=== PATIENT | male | born 1960 | race Caucasian/White ===

== ENCOUNTER 2023-09-16 11:43 | Inpatient (IN) | payer MEDICARE, MEDICAID ==
[~2023-09-16] VITALS: Ht 175.3 cm; Wt 95.3 kg
[2023-09-16] VITALS (7 sets, daily range): BP systolic 101–126; BP diastolic 65–86; PULSE 88–99; RESP 17–21; TEMP 97.7–99; O2SAT 97–98
[~2023-09-16 11:43] MED LIST: ALL300T PO; ASPI-1265 PO; ATOR40TA71 PO; FURO-150 PO; GEMF600T89 PO; LISI40TA13 PO; LORA1TAB PO; METO50TA16 PO; NORCO10T PO; OMEP-84 PO; POTA8TAB8 PO; SERT-153 PO; TEMA30CA5 PO
[2023-09-16 12:49] LABS: BASOPHILS % (AUTO) 0.8 % (0-1); EOSINOPHILS % (AUTO) 0.5 % (0-6); LYMPHOCYTES # (AUTO) 1.4 X10'3 (1.1-4.8); LYMPHOCYTES % (AUTO) 23.5 % (21-51); MEAN CORPUSCULAR HEMOGLOBIN 23.7 PG (27.0-31.0); MEAN CORPUSCULAR HGB CONC 30.7 g/dL (33.0-36.5); MEAN CORPUSCULAR VOLUME 77.1 FL (78-98); MEAN PLATELET VOLUME 8.9 FL (7.4-10.4); MONOCYTES # (AUTO) 0.7 X10'3 (0-0.9); MONOCYTES % (AUTO) 12.4 % (2-12); NEUTROPHILS # (AUTO) 3.7 X10'3 (1.8-7.7); NEUTROPHILS % (AUTO) 62.8 % (42-75); PLATELET COUNT 175 X10'3 (140-440); RED CELL DISTRIBUTION WIDTH 18.1 % (11.5-14.5); WHITE BLOOD COUNT 5.9 X10'3 (4.5-11.0)
[2023-09-16 12:52] LABS: HEMATOCRIT 20.1 % (42.0-52.0); HEMOGLOBIN 6.2 g/dl (14.0-17.9)
[2023-09-16 13:05] LABS: ALANINE AMINOTRANSFERASE 32 U/L (12-78); ALBUMIN 4.1 G/DL (3.4-5.0); ALBUMIN/GLOBULIN RATIO 1.1 (1.1-1.5); ALKALINE PHOSPHATASE 81 IU/L (46-116); ANION GAP 15 (8-16); ASPARTATE AMINO TRANSFERASE 28 U/L (10-37); BILIRUBIN,TOTAL 0.7 MG/DL (0.1-1.0); BLOOD UREA NITROGEN 19 MG/DL (7-18); BUN/CREATININE RATIO 18.6 (10.0-20.0); CALCIUM 9.2 MG/DL (8.5-10.1); CHLORIDE 104 MMOL/L (99-107); CREATININE 1.02 MG/DL (0.60-1.10); GLUCOSE 124 MG/DL (70-104); SODIUM 142 MMOL/L (135-145); TOTAL CARBON DIOXIDE 23.4 MMOL/L (24-32); TOTAL PROTEIN 7.9 G/DL (6.4-8.2); eCRCL 73 ML/MIN; eGFR 74 ML/MIN
[2023-09-16 15:24] LABS: BILIRUBIN,DIRECT 0.2 MG/DL (0-0.3); ETHANOL < 10 MG/DL (<10)
[2023-09-16 15:39] LABS: MAGNESIUM 1.9 MG/DL (1.5-2.4)
[2023-09-16 15:44] LABS: PROTHROMBIN TIME 10.8 SECONDS (9.0-12.0)
[2023-09-16] MEDS ORDERED: haloperidol 5mg tablet PO PRN (16:15)
[2023-09-16] MEDS ORDERED: magnesium Cl slow-release 64mg tablet PO PRN (16:15)
[2023-09-16] MEDS ORDERED: magnesium 4gm in 100ml NS 100 ML IV PRN (16:15)
[2023-09-16] MEDS ORDERED: potassium Cl 40MEQ/1/2NS 520ml 520 ML IV PRN (16:15)
[2023-09-16] MEDS ORDERED: dextrose 50%-water 50ml dispensing syringe IV PRN ×3 (16:15→21:25)
[2023-09-16] MEDS ORDERED: magnesium hydroxide 30ml (MOM) UD suspension PO PRN (16:15)
[2023-09-16] MEDS ORDERED: LORazepam 2 mg/ml vial IV PRN (16:15)
[2023-09-16] MEDS ORDERED: ondansetron/PF 4mg/2ml inj IV PRN (16:15)
[2023-09-16] MEDS ORDERED: acetaminophen 325mg tablet PO PRN (16:15)
[2023-09-16] MEDS ORDERED: haloperidol lactate 5mg/ml inj IM PRN (16:15)
[2023-09-16] MEDS ORDERED: mag hydrox/Alum hydrox/simeth 30ml oral suspension PO PRN (16:15)
[2023-09-16] MEDS ORDERED: potassium Cl 20 mEq SR tablet PO PRN (16:15)
[2023-09-16] MEDS ORDERED: magnesium 2GM in 50ml NS 50 ML IV PRN (16:15)
[2023-09-16 16:59] LABS: ABSOLUTE RETICS # < 6000 /CUMM (23000-93000); RETICULOCYTE % (AUTO) 3.9 % (0.5-1.5)
[2023-09-16] MEDS: normal saline 1000ml 1,000 ML IV SCH (16:59)
[2023-09-16] MEDS: pantoprazole 40MG/NS 100ML BAG 100 ML IV SCH (17:01)
[2023-09-16 17:59] LABS: % IRON SATURATION 4 % (11-46); IRON 25 UG/DL (53-167); TOTAL IRON BINDING CAPACITY 619 UG/DL (259-388)
[2023-09-16] MEDS: K and/or MAG REPLACEMENT MC SCH (19:59)
[2023-09-16 20:45] LABS: MEAN CORPUSCULAR HEMOGLOBIN 24.8 PG (27.0-31.0); MEAN CORPUSCULAR HGB CONC 31.5 g/dL (33.0-36.5); MEAN CORPUSCULAR VOLUME 78.7 FL (78-98); MEAN PLATELET VOLUME 9.3 FL (7.4-10.4); PLATELET COUNT 156 X10'3 (140-440); RED BLOOD COUNT 2.67 X10'6 (4.70-6.10); RED CELL DISTRIBUTION WIDTH 18.7 % (11.5-14.5); WHITE BLOOD COUNT 7.2 X10'3 (4.5-11.0)
[2023-09-16 20:55] LABS: HEMOGLOBIN 6.6 g/dl (14.0-17.9)
[2023-09-16] MEDS: thiamine 100mg/ml 2ml inj. IV SCH (21:23)
[2023-09-16] MEDS ORDERED: DEXTROSE 15 GM of carb/4 tabs (each vial/BOTTLE has 4 tablets) PO PRN ×2 (21:25)
[2023-09-16] MEDS ORDERED: insulin Lispro (HumaLOG) vial - multi-dose SQ SCH (21:25)
[2023-09-16] MEDS ORDERED: glucagon, human recombinant 1mg kit SUBCUT PRN (21:25)
[2023-09-16 21:46] LABS: HEMOGLOBIN A1C 6.9 % (4.5-6.2)
[2023-09-16] MEDS: MESSAGE TO PHARMACY PO ONE (22:00)
[2023-09-16] MEDS: LORazepam 1 MG tablet PO PRN (22:14)
[2023-09-16] MEDS ORDERED: LORA10TA7 PO (22:43)
[2023-09-16] MEDS ORDERED: SITA50TA PO (22:43)
[2023-09-16] MEDS ORDERED: METF-438 PO (22:44)
[2023-09-16] MEDS ORDERED: VITA-268 PO (22:44)
[2023-09-17] VITALS (15 sets, daily range): BP systolic 102–139; BP diastolic 69–90; PULSE 73–99; RESP 11–22; TEMP 96.9–98.3; O2SAT 95–100
[2023-09-17 01:02] LABS: FERRITIN 13 NG/ML (26-388)
[2023-09-17 07:23] LABS: BASOPHILS % (AUTO) 0.7 % (0-1); EOSINOPHILS % (AUTO) 0.8 % (0-6); HEMATOCRIT 23.6 % (42.0-52.0); HEMOGLOBIN 7.5 g/dl (14.0-17.9); LYMPHOCYTES # (AUTO) 1.3 X10'3 (1.1-4.8); LYMPHOCYTES % (AUTO) 28.4 % (21-51); MEAN CORPUSCULAR HEMOGLOBIN 25.4 PG (27.0-31.0); MEAN CORPUSCULAR VOLUME 79.3 FL (78-98); MEAN PLATELET VOLUME 8.9 FL (7.4-10.4); MONOCYTES # (AUTO) 0.5 X10'3 (0-0.9); MONOCYTES % (AUTO) 11.4 % (2-12); NEUTROPHILS # (AUTO) 2.8 X10'3 (1.8-7.7); NEUTROPHILS % (AUTO) 58.7 % (42-75); PLATELET COUNT 123 X10'3 (140-440); RED BLOOD COUNT 2.98 X10'6 (4.70-6.10); RED CELL DISTRIBUTION WIDTH 18.3 % (11.5-14.5); WHITE BLOOD COUNT 4.7 X10'3 (4.5-11.0)
[2023-09-17 07:44] LABS: ALANINE AMINOTRANSFERASE 31 U/L (12-78); ALBUMIN 3.9 G/DL (3.4-5.0); ALBUMIN/GLOBULIN RATIO 1.3 (1.1-1.5); ALKALINE PHOSPHATASE 76 IU/L (46-116); ANION GAP 10 (8-16); ASPARTATE AMINO TRANSFERASE 34 U/L (10-37); BILIRUBIN,TOTAL 0.7 MG/DL (0.1-1.0); BLOOD UREA NITROGEN 19 MG/DL (7-18); BUN/CREATININE RATIO 19.6 (10.0-20.0); CALCIUM 8.2 MG/DL (8.5-10.1); CHLORIDE 104 MMOL/L (99-107); CREATININE 0.97 MG/DL (0.60-1.10); GLUCOSE 141 MG/DL (70-104); POTASSIUM 3.9 MMOL/L (3.5-5.1); SODIUM 139 MMOL/L (135-145); TOTAL CARBON DIOXIDE 25.2 MMOL/L (24-32); TOTAL PROTEIN 6.9 G/DL (6.4-8.2); eCRCL 77 ML/MIN; eGFR 78 ML/MIN
[2023-09-17 07:51] LABS: OCCULT BLOOD STOOL POSITIVE (Neg)
[2023-09-17] MEDS: folic acid 1mg/0.2ml inj IV SCH (10:03)
[2023-09-17] MEDS ORDERED: fentaNYL/PF 50MCG/1 ML 2ML syringe ONE (14:13)
[2023-09-17] MEDS ORDERED: MIDAZolam 1 MG/ML 5ML VIAL ONE (14:13)
[2023-09-17] MEDS: PEG 3350/Na sulf,bicarb,Cl/KCl oral sol 4 liter bottle PO ONE (16:41)
[2023-09-17] MEDS: CefTRIAXone/D5W-Rocephin 1gm 50 ML IV SCH (20:13)
[2023-09-17] MEDS: insulin glargine (Lantus) pen - multi-dose SQ SCH (20:18)
[2023-09-18] VITALS (23 sets, daily range): BP systolic 94–132; BP diastolic 60–96; PULSE 86–103; RESP 12–24; TEMP 97.3–98.1; O2SAT 91–98
[2023-09-18] MEDS: atorvastatin 20mg tablet PO SCH (07:16)
[2023-09-18] MEDS: gemfibrozil 600mg tablet PO SCH (07:16)
[2023-09-18] MEDS: allopurinol 300 MG tablet PO SCH (07:16)
[2023-09-18 07:20] LABS: BASOPHILS % (AUTO) 0.4 % (0-1); EOSINOPHILS # (AUTO) 0.1 X10'3 (0-0.9); EOSINOPHILS % (AUTO) 1.2 % (0-6); LYMPHOCYTES # (AUTO) 0.9 X10'3 (1.1-4.8); LYMPHOCYTES % (AUTO) 19.4 % (21-51); MEAN CORPUSCULAR HGB CONC 31.6 g/dL (33.0-36.5); MEAN PLATELET VOLUME 9.1 FL (7.4-10.4); MONOCYTES # (AUTO) 0.5 X10'3 (0-0.9); MONOCYTES % (AUTO) 10.5 % (2-12); NEUTROPHILS # (AUTO) 3.2 X10'3 (1.8-7.7); NEUTROPHILS % (AUTO) 68.5 % (42-75); PLATELET COUNT 117 X10'3 (140-440); RED BLOOD COUNT 2.66 X10'6 (4.70-6.10); RED CELL DISTRIBUTION WIDTH 18.6 % (11.5-14.5); WHITE BLOOD COUNT 4.7 X10'3 (4.5-11.0)
[2023-09-18 07:27] LABS: HEMOGLOBIN 6.7 g/dl (14.0-17.9)
[2023-09-18 07:36] LABS: ALANINE AMINOTRANSFERASE 33 U/L (12-78); ALBUMIN 3.2 G/DL (3.4-5.0); ALBUMIN/GLOBULIN RATIO 1.1 (1.1-1.5); ALKALINE PHOSPHATASE 71 IU/L (46-116); ANION GAP 11 (8-16); ASPARTATE AMINO TRANSFERASE 37 U/L (10-37); BILIRUBIN,TOTAL 0.6 MG/DL (0.1-1.0); BLOOD UREA NITROGEN 11 MG/DL (7-18); BUN/CREATININE RATIO 12.8 (10.0-20.0); CALCIUM 7.8 MG/DL (8.5-10.1); CHLORIDE 106 MMOL/L (99-107); CREATININE 0.86 MG/DL (0.60-1.10); GLUCOSE 121 MG/DL (70-104); POTASSIUM 3.3 MMOL/L (3.5-5.1); SODIUM 141 MMOL/L (135-145); TOTAL CARBON DIOXIDE 24.3 MMOL/L (24-32); TOTAL PROTEIN 6.1 G/DL (6.4-8.2); eCRCL 87 ML/MIN; eGFR 90 ML/MIN
[2023-09-18 08:23] LABS: PLATELET ESTIMATE DECREASED
[2023-09-18 08:24] LABS: ANISOCYTOSIS 2+; ELLIPTOCYTES FEW; HYPOCHROMASIA 1+; MICROCYTOSIS 1+; POLYCHROMASIA 1+; TEAR DROP CELLS FEW
[2023-09-18] MEDS: potassium Cl 20 mEq SR tablet PO PRN (09:46)
[2023-09-18 13:05] LABS: HEMATOCRIT 24.7 % (42.0-52.0); HEMOGLOBIN 7.9 g/dl (14.0-17.9); MEAN CORPUSCULAR HEMOGLOBIN 26.2 PG (27.0-31.0); MEAN CORPUSCULAR HGB CONC 32.1 g/dL (33.0-36.5); MEAN CORPUSCULAR VOLUME 81.8 FL (78-98); MEAN PLATELET VOLUME 8.9 FL (7.4-10.4); PLATELET COUNT 119 X10'3 (140-440); RED BLOOD COUNT 3.02 X10'6 (4.70-6.10); RED CELL DISTRIBUTION WIDTH 20.4 % (11.5-14.5); WHITE BLOOD COUNT 5.3 X10'3 (4.5-11.0)
[2023-09-18] MEDS ORDERED: fentaNYL/PF 50MCG/1 ML 2ML syringe ONE (14:09)
[2023-09-18] MEDS ORDERED: epiNEPHrine 0.1mg/ml 10ml syringe ONE (14:09)
[2023-09-18] MEDS ORDERED: MIDAZolam 1 MG/ML 5ML VIAL ONE (14:09)
[2023-09-18] MEDS: pantoprazole 40mg Tablet.DR PO SCH (19:59)
[2023-09-19 02:00] VITALS: BP 99/66; PULSE 69; RESP 19; TEMP 97.4; O2SAT 96
[2023-09-19 06:00] VITALS: BP 119/89; PULSE 85; RESP 18; TEMP 97.3; O2SAT 94
[2023-09-19 06:25] LABS: BASOPHILS % (AUTO) 0.8 % (0-1); EOSINOPHILS # (AUTO) 0.1 X10'3 (0-0.9); EOSINOPHILS % (AUTO) 1.8 % (0-6); HEMATOCRIT 26.7 % (42.0-52.0); HEMOGLOBIN 8.4 g/dl (14.0-17.9); LYMPHOCYTES # (AUTO) 1.3 X10'3 (1.1-4.8); LYMPHOCYTES % (AUTO) 22.1 % (21-51); MEAN CORPUSCULAR HGB CONC 31.6 g/dL (33.0-36.5); MEAN CORPUSCULAR VOLUME 82.2 FL (78-98); MEAN PLATELET VOLUME 9.3 FL (7.4-10.4); MONOCYTES # (AUTO) 0.6 X10'3 (0-0.9); MONOCYTES % (AUTO) 10.2 % (2-12); NEUTROPHILS # (AUTO) 3.7 X10'3 (1.8-7.7); NEUTROPHILS % (AUTO) 65.1 % (42-75); PLATELET COUNT 119 X10'3 (140-440); RED BLOOD COUNT 3.25 X10'6 (4.70-6.10); RED CELL DISTRIBUTION WIDTH 20.8 % (11.5-14.5); WHITE BLOOD COUNT 5.8 X10'3 (4.5-11.0)
[2023-09-19 06:42] LABS: ALANINE AMINOTRANSFERASE 41 U/L (12-78); ALBUMIN 3.3 G/DL (3.4-5.0); ALKALINE PHOSPHATASE 77 IU/L (46-116); ANION GAP 10 (8-16); ASPARTATE AMINO TRANSFERASE 41 U/L (10-37); BILIRUBIN,TOTAL 0.5 MG/DL (0.1-1.0); BLOOD UREA NITROGEN 13 MG/DL (7-18); BUN/CREATININE RATIO 14.4 (10.0-20.0); CALCIUM 8.2 MG/DL (8.5-10.1); CHLORIDE 107 MMOL/L (99-107); GLUCOSE 127 MG/DL (70-104); SODIUM 142 MMOL/L (135-145); TOTAL PROTEIN 6.5 G/DL (6.4-8.2); eCRCL 83 ML/MIN; eGFR 85 ML/MIN
[2023-09-19 07:18] LABS: ANISOCYTOSIS 3+; MICROCYTOSIS 1+; PLATELET ESTIMATE DECREASED; TEAR DROP CELLS FEW
[2023-09-19 07:19] LABS: POIKILOCYTOSIS FEW
[2023-09-19 08:00] VITALS: RESP 16; O2SAT 95
[2023-09-19 11:00] VITALS: BP 119/84; PULSE 76; RESP 16; TEMP 98.1; O2SAT 95
[2023-09-19] MEDS ORDERED: FERR324T4 PO (11:34)
[2023-09-19] MEDS ORDERED: FOLI0.4T6 PO (11:34)
[2023-09-20] MEDS ORDERED: thiamine 100mg tablet PO SCH (08:00)
[2023-09-21] MEDS ORDERED: folic acid 1mg tablet PO SCH (08:00)
== END 2023-09-19 12:31 | disposition home or self-care (01) | DRG 378 ==
LOC: ER 11:44 → ED HOLD 16:16 → PCU 3S 21:45
PROVIDERS: ADMIT Family Medicine; ATTEND Family Medicine
PROC: 30233N1 Transfusion of Nonautologous Red Blood Cells into Peripheral Vein, Percutaneous Approach (ICD-10-PCS; principal; 2023-09-16)
PROC: 0DB48ZX Excision of Esophagogastric Junction, Via Natural or Artificial Opening Endoscopic, Diagnostic (ICD-10-PCS; 2023-09-17)
PROC: 0DB78ZX Excision of Stomach, Pylorus, Via Natural or Artificial Opening Endoscopic, Diagnostic (ICD-10-PCS; 2023-09-17)
PROC: 0DBP8ZZ Excision of Rectum, Via Natural or Artificial Opening Endoscopic (ICD-10-PCS; 2023-09-18)
DX: K92.2 Gastrointestinal hemorrhage, unspecified (principal); I50.30 Unspecified diastolic (congestive) heart failure; K62.1 Rectal polyp; M10.9 Gout, unspecified; K21.00 Gastro-esophageal reflux disease with esophagitis, without bleeding; F17.210 Nicotine dependence, cigarettes, uncomplicated; E11.9 Type 2 diabetes mellitus without complications; I25.10 Atherosclerotic heart disease of native coronary artery without angina pectoris; I11.0 Hypertensive heart disease with heart failure; K44.9 Diaphragmatic hernia without obstruction or gangrene; D50.9 Iron deficiency anemia, unspecified; I25.2 Old myocardial infarction; Z95.1 Presence of aortocoronary bypass graft; Z90.49 Acquired absence of other specified parts of digestive tract; Z95.0 Presence of cardiac pacemaker; Z79.82 Long term (current) use of aspirin; Z79.899 Other long term (current) drug therapy; Z95.2 Presence of prosthetic heart valve
CPT/HCPCS: 36415; 36430; 43239; 45385; 80053; 80320; 82248; 82272; 82728; 82948; 83036; 83540; 83550; 83735; 85008; 85025; 85027; 85045; 85610; 86885; 86900; 86901; 86920; 87081; 88305; 93306; 99152; 99153; 99285; A4620; C1889; C9113; G0378; J0171; J0696; J1815; J2250; J3010; J3411; J3490; J7030; J7040; J7050; P9016

== ENCOUNTER 2024-01-19 10:14 | Day surgery (SDC) | payer MEDICARE, MEDICAID ==
[2024-01-15 12:22] LABS: BASOPHILS # (AUTO) 0.1 X10'3 (0-0.2); BASOPHILS % (AUTO) 0.8 % (0-1); EOSINOPHILS % (AUTO) 0.3 % (0-6); HEMATOCRIT 23.9 % (42.0-52.0); LYMPHOCYTES # (AUTO) 1.1 X10'3 (1.1-4.8); LYMPHOCYTES % (AUTO) 15.3 % (21-51); MEAN CORPUSCULAR HEMOGLOBIN 21.1 PG (27.0-31.0); MEAN CORPUSCULAR HGB CONC 29.5 g/dL (33.0-36.5); MEAN CORPUSCULAR VOLUME 71.5 FL (78-98); MEAN PLATELET VOLUME 9.1 FL (7.4-10.4); MONOCYTES # (AUTO) 0.9 X10'3 (0-0.9); MONOCYTES % (AUTO) 11.9 % (2-12); NEUTROPHILS # (AUTO) 5.2 X10'3 (1.8-7.7); NEUTROPHILS % (AUTO) 71.7 % (42-75); PLATELET COUNT 173 X10'3 (140-440); RED BLOOD COUNT 3.34 X10'6 (4.70-6.10); RED CELL DISTRIBUTION WIDTH 19.5 % (11.5-14.5); WHITE BLOOD COUNT 7.2 X10'3 (4.5-11.0)
[2024-01-15 12:33] LABS: APTT 26 SECONDS (22-32); INR 1.2 INR; PROTHROMBIN TIME 12.7 SECONDS (9.0-12.0)
[2024-01-15 12:34] LABS: ALBUMIN 3.6 G/DL (3.4-5.0); ANION GAP 10 (8-16); BLOOD UREA NITROGEN 20 MG/DL (7-18); BUN/CREATININE RATIO 17.5 (10.0-20.0); CALCIUM 8.8 MG/DL (8.5-10.1); CHLORIDE 101 MMOL/L (99-107); CHOL/HDL RATIO 3.2 (0.00-4.99); CHOLESTEROL 71 MG/DL (0-200); CREATININE 1.14 MG/DL (0.60-1.10); GLUCOSE 138 MG/DL (70-104); HDL CHOLESTEROL 22 MG/DL (35-60); LDL CHOLESTEROL 41 MG/DL (50-100); POTASSIUM 3.3 MMOL/L (3.5-5.1); SODIUM 135 MMOL/L (135-145); TOTAL CARBON DIOXIDE 23.9 MMOL/L (24-32); TRIGLYCERIDES 72 MG/DL (20-135); eGFR 64 ML/MIN
[2024-01-15 13:30] LABS: ANISOCYTOSIS 2+; MICROCYTOSIS 1+; PLATELET ESTIMATE NORMAL; TARGET CELLS FEW
[2024-01-15 13:31] LABS: ELLIPTOCYTES 1+; HYPOCHROMASIA 1+; STOMATOCYTES 1+; TEAR DROP CELLS FEW
[~2024-01-19] VITALS: Ht 177.8 cm; Wt 109.8 kg
[2024-01-19] VITALS (9 sets, daily range): BP systolic 79–121; BP diastolic 54–79; PULSE 74–95; RESP 16–18; TEMP 98.2; O2SAT 95–98
[~2024-01-19 10:14] MED LIST changes: +ATOR10TA87 PO; -ATOR40TA71 PO; -LISI40TA13 PO; +LORA10TA7 PO; -LORA1TAB PO; +LOSA-416 PO; +METF-438 PO; +METO-395 PO; -METO50TA16 PO; -NORCO10T PO; -OMEP-84 PO; +PANT-47 PO; -SERT-153 PO; +SITA50TA PO; -TEMA30CA5 PO
[2024-01-19 10:51] LABS: BASOPHILS # (AUTO) 0.1 X10'3 (0-0.2); EOSINOPHILS % (AUTO) 0.6 % (0-6); HEMATOCRIT 25.2 % (42.0-52.0); HEMOGLOBIN 7.5 g/dl (14.0-17.9); LYMPHOCYTES # (AUTO) 1.4 X10'3 (1.1-4.8); LYMPHOCYTES % (AUTO) 16.6 % (21-51); MEAN CORPUSCULAR HEMOGLOBIN 20.9 PG (27.0-31.0); MEAN CORPUSCULAR HGB CONC 29.6 g/dL (33.0-36.5); MEAN CORPUSCULAR VOLUME 70.4 FL (78-98); MEAN PLATELET VOLUME 9.3 FL (7.4-10.4); MONOCYTES # (AUTO) 1.1 X10'3 (0-0.9); MONOCYTES % (AUTO) 12.8 % (2-12); NEUTROPHILS # (AUTO) 5.8 X10'3 (1.8-7.7); PLATELET COUNT 205 X10'3 (140-440); RED BLOOD COUNT 3.59 X10'6 (4.70-6.10); RED CELL DISTRIBUTION WIDTH 19.2 % (11.5-14.5); WHITE BLOOD COUNT 8.4 X10'3 (4.5-11.0)
[2024-01-19] MEDS ORDERED: PANT40TA54 PO (10:51)
[2024-01-19] MEDS ORDERED: PYRI25TA3 PO (10:51)
[2024-01-19] MEDS ORDERED: FERR324T4 PO (10:52)
[2024-01-19] MEDS ORDERED: LORA10TA7 PO (10:52)
[2024-01-19] MEDS ORDERED: FOLI0.4T14 PO (10:53)
[2024-01-19] MEDS ORDERED: NITR0.4T48 (10:55)
[2024-01-19] MEDS ORDERED: GEMF600T90 PO (10:57)
[2024-01-19 11:13] LABS: ALANINE AMINOTRANSFERASE 29 U/L (12-78); ALBUMIN 3.6 G/DL (3.4-5.0); ALBUMIN/GLOBULIN RATIO 0.9 (1.1-1.5); ALKALINE PHOSPHATASE 138 IU/L (46-116); ANION GAP 13 (8-16); ASPARTATE AMINO TRANSFERASE 32 U/L (10-37); BLOOD UREA NITROGEN 19 MG/DL (7-18); BUN/CREATININE RATIO 16.7 (10.0-20.0); CALCIUM 8.9 MG/DL (8.5-10.1); CHLORIDE 99 MMOL/L (99-107); CREATININE 1.14 MG/DL (0.60-1.10); GLUCOSE 121 MG/DL (70-104); POTASSIUM 3.6 MMOL/L (3.5-5.1); SODIUM 137 MMOL/L (135-145); TOTAL CARBON DIOXIDE 25.1 MMOL/L (24-32); TOTAL PROTEIN 7.5 G/DL (6.4-8.2); eCRCL 67 ML/MIN; eGFR 64 ML/MIN
[2024-01-19] MEDS: normal saline 1,000 ML IV SCH (11:45)
[2024-01-19] MEDS ORDERED: LIDOcaine 1% (10mg/ml) 2ml vial ONE (12:52)
[2024-01-19] MEDS ORDERED: fentaNYL/PF 50MCG/1 ML 2ML syringe ONE (12:53)
[2024-01-19] MEDS ORDERED: heparin 1,000unit/ml 10ml vial 10 ML ONE (12:53)
[2024-01-19] MEDS ORDERED: midazolam 1 mg/ML 2ml injection ONE (12:53)
[2024-01-19] MEDS ORDERED: verapamil 2.5 mg/ml inj IV ONE (12:53)
[2024-01-19] MEDS ORDERED: iohexol 350MG/ML 100ml bottle IV ONE ×3 (12:53→14:13)
[2024-01-19] MEDS ORDERED: nitroGLYCERIN 500mcg/5mL D5W 5 ML IV ONE (12:56)
[2024-01-19] MEDS: LORazepam 0.5 MG tablet PO PRN (13:00)
[2024-01-19] MEDS: diphenhydrAMINE 25mg capsule PO PRN (13:00)
[2024-01-19] MEDS ORDERED: LIDOcaine 1% 30ml preserv. free vial ONE (13:27)
[2024-01-19] MEDS ORDERED: HYDROcodone/acetaminophen 5mg/325mg tablet PO PRN (14:45)
[2024-01-19] MEDS ORDERED: HYDROcodone/acetaminophen 10/325mg tab PO PRN (14:45)
== END 2024-01-19 17:30 | disposition home or self-care (01) ==
LOC: SSTAY O 10:14
PROVIDERS: ATTEND Student in an Organized Health Care Education/Training Program
DX: I35.0 Nonrheumatic aortic (valve) stenosis (principal); I25.10 Atherosclerotic heart disease of native coronary artery without angina pectoris; I48.91 Unspecified atrial fibrillation; I49.3 Ventricular premature depolarization; I45.2 Bifascicular block; I11.0 Hypertensive heart disease with heart failure; I50.9 Heart failure, unspecified; E78.00 Pure hypercholesterolemia, unspecified; M10.9 Gout, unspecified; I25.5 Ischemic cardiomyopathy; Z79.82 Long term (current) use of aspirin; Z79.84 Long term (current) use of oral hypoglycemic drugs; Z79.899 Other long term (current) drug therapy; Z95.1 Presence of aortocoronary bypass graft; Z95.4 Presence of other heart-valve replacement
CPT/HCPCS: 36415; 80048; 80053; 80061; 85025; 85610; 85730; 93005; 93455; 99152; 99153; A6258; A6402; C1751; C1894; J1644; J2001; J2250; J3010; J3490; J7030; Q0163; Q9967; Z7610; 85008

== ENCOUNTER 2024-06-06 08:41 | Outpatient (CLI) | payer MEDICARE, MEDICAID ==
[2024-06-02 13:14] LABS: ALBUMIN 4.5 G/DL (3.4-5.0); ANION GAP 13 (8-16); BLOOD UREA NITROGEN 28 MG/DL (7-18); BUN/CREATININE RATIO 22.6 (10.0-20.0); CALCIUM 9.5 MG/DL (8.5-10.1); CHLORIDE 100 MMOL/L (99-107); CREATININE 1.24 MG/DL (0.60-1.10); GLUCOSE 113 MG/DL (70-104); POTASSIUM 3.6 MMOL/L (3.5-5.1); SODIUM 139 MMOL/L (135-145); TOTAL CARBON DIOXIDE 26.1 MMOL/L (24-32); eGFR 59 ML/MIN
[~2024-06-06 08:41] MED LIST changes: +FERR324T4 PO; +FOLI0.4T14 PO; +GEMF600T90 PO; +NITR0.4T48; -PANT-47 PO; +PANT40TA54 PO; +PYRI25TA3 PO
[2024-06-06] MEDS ORDERED: iohexol 350MG/ML 100ml bottle IV ONE (09:01)
== END 2024-06-06 23:59 | disposition home or self-care (01) ==
LOC: RAD 08:41
PROVIDERS: ATTEND Internal Medicine Interventional Cardiology
DX: I71.21 Aneurysm of the ascending aorta, without rupture (principal); I25.810 Atherosclerosis of coronary artery bypass graft(s) without angina pectoris; I50.22 Chronic systolic (congestive) heart failure; Z95.2 Presence of prosthetic heart valve
CPT/HCPCS: 36415; 75572; 80048; Q9967